=== PATIENT | male | born 1990 | race American Indian/Alaskan Native ===

== ENCOUNTER 2016-06-14 12:41 | Emergency (ER) | payer SELFPAY ==
[2016-06-14 17:53] VITALS: BP 124/78
--- NOTE | 2016-06-14 18:04 | Emergency Department Report ---
Chief Complaint: Urogenital-Male Stated Complaint: ANAL WARTS Time Seen by Provider: 06/14/16 17:11 - HPI History of Present Illness: 25-year-old female presents today stating that he has wart like lesions of his anal area 5 weeks. Denies history of similar symptoms. Denies drainage or bleeding. Denies pain. Positive for pruritus. Patient is currently sexually active. Denies fever, chills, nausea, vomiting, chest pain, shortness of breath , abdominal pain. - ROS Review of Systems: Per HPI - Exam Vital Signs: Vital Signs 06/14/16 06/14/16 12:53 17:30 Temperature 97.8 F Pulse Rate 81 78 Respiratory 18 16 Rate Blood Pressure 126/87 Blood Pressure 124/78 [Right] O2 Sat by Pulse 100 100 Oximetry Physical Exam: General: 25-year-old male in no acute distress. Well-developed, well-nourished. CV: Regular rate and rhythm. No murmurs rubs or gallops. Lungs: Clear to auscultation bilaterally. Abdomen: No tenderness to palpation. Nondistended. No guarding or rebound tenderness. Normal bowel sounds. Mini Neuro: Alert and oriented 3. GCS at 15. MSE screening note: Focused history and physical exam performed. Due to findings the following was ordered: ED Disposition for MSE Disposition: MEDICAL SCREENING EXAM-LEFT Condition: Stable Referrals: PRIMARY CARE, [Primary Care Provider] - 3-5 Days
== END 2016-06-14 17:53 | disposition left against medical advice (07) ==
LOC: ED 12:41
DX: K62.89 Other specified diseases of anus and rectum (principal); Z53.21 Procedure and treatment not carried out due to patient leaving prior to being seen by health care provider